=== PATIENT | male | born 1965 | race African-American/Black ===

== ENCOUNTER 2020-01-02 20:09 | Emergency (ER) | payer MEDICAID, OTHER ==
[~2020-01-02] VITALS: Ht 177.8 cm; Wt 70.0 kg
[~2020-01-02 20:09] MED LIST: TOPUD
[2020-01-02 20:17] VITALS: BP 197/88
== END 2020-01-02 20:40 | disposition left against medical advice (07) ==
LOC: ER 20:09
DX: Z53.21 Procedure and treatment not carried out due to patient leaving prior to being seen by health care provider (principal)

== ENCOUNTER 2024-09-06 13:49 | Emergency (ER) | payer MEDICAID, OTHER ==
[~2024-09-06] VITALS: Ht 182.9 cm; Wt 87.0 kg
[2024-09-06 13:51] VITALS: BP 186/91; PULSE 91; RESP 16; TEMP 97.4; O2SAT 97
== END 2024-09-06 15:02 | disposition home or self-care (01) ==
LOC: ER 13:49
DX: R55 Syncope and collapse (principal); E11.9 Type 2 diabetes mellitus without complications; I10 Essential (primary) hypertension
CPT/HCPCS: 99283